=== PATIENT | male | born 1985 | race Caucasian/White ===

== ENCOUNTER → 2019-04-29 | Outpatient (CLI) | payer BC ==
[~2019-04-29] MED LIST: BACTRIM DS TAB1 EACH PO; FLOMAX PO; PERCOCET 5-3251 EACH PO
[2019-04-29 07:43] LABS: HEMATOCRIT 44.3 % (42.0-52.0); HEMOGLOBIN 15.4 gm/dL (14.0-18.0); MCH 30.3 pg (26.0-34.0); MCHC 34.8 g/dL (28.0-37.0); MCV 86.9 fL (80.0-100.0); MPV 8.2 fl. (7.2-11.1); RBC 5.09 mil/uL (4.50-6.00); RDW-CV 12.6 % (10.5-14.5); WBC 6.7 thou/uL (4.0-11.0)
[2019-04-29 07:54] LABS: ALBUMIN 4.3 g/dL (3.4-5.0); CALCIUM 9.2 mg/dL (8.5-10.1); CREATININE 0.9 mg/dL (0.6-1.3); POTASSIUM 3.9 mmol/L (3.5-5.1); TOTAL BILIRUBIN 0.4 mg/dL (<0.1-1.0); TOTAL PROTEIN 7.9 g/dL (6.4-8.2)
[2019-04-29 15:11] LABS: PROLACTIN 8.5 ng/mL (4.0-15.2); TESTOSTERONE 214 ng/dL (264-916)
[2019-05-01 11:07] LABS: % FREE PSA 25.8 % (()); FREE PSA 0.31 ng/mL; FREE TESTOSTERONE 8.3 pg/mL (8.7-25.1)
== END ==
LOC: M.LAB 07:19
PROVIDERS: Urology
DX: E29.1 Testicular hypofunction (principal)